=== PATIENT | male | born 1980 | race Caucasian/White ===

== ENCOUNTER 2019-10-05 10:44 | Emergency (ER) | payer OTHER ==
[~2019-10-05] VITALS: Ht 195.6 cm; Wt 122.7 kg
[2019-10-05 10:46] VITALS: BP 145/108
== END 2019-10-05 12:22 | disposition home or self-care (01) ==
LOC: ER 10:45
DX: M25.511 Pain in right shoulder (principal); M54.2 Cervicalgia; R10.30 Lower abdominal pain, unspecified; R10.2 Pelvic and perineal pain; G89.29 Other chronic pain; Z72.89 Other problems related to lifestyle
CPT/HCPCS: 73030; 99283

== ENCOUNTER 2022-03-18 14:46 | Emergency (ER) | payer BC ==
[~2022-03-18] VITALS: Ht 191.8 cm; Wt 136.4 kg
[2022-03-18 15:06] LABS: BASOPHILS % (AUTO) 0.4 % (0-1); EOSINOPHILS % (AUTO) 0.4 % (0-6); HEMATOCRIT 44.3 % (42.0-52.0); HEMOGLOBIN 14.7 g/dl (14.0-17.9); LYMPHOCYTES # (AUTO) 2.5 X10'3 (1.1-4.8); LYMPHOCYTES % (AUTO) 25.3 % (21-51); MEAN CORPUSCULAR HEMOGLOBIN 29.7 PG (27.0-31.0); MEAN CORPUSCULAR HGB CONC 33.2 g/dL (33.0-36.5); MEAN CORPUSCULAR VOLUME 89.6 FL (78-98); MEAN PLATELET VOLUME 6.6 FL (7.4-10.4); MONOCYTES # (AUTO) 0.8 X10'3 (0-0.9); NEUTROPHILS # (AUTO) 6.5 X10'3 (1.8-7.7); NEUTROPHILS % (AUTO) 65.9 % (42-75); PLATELET COUNT 254 X10'3 (140-440); RED BLOOD COUNT 4.94 X10'6 (4.70-6.10); RED CELL DISTRIBUTION WIDTH 14.4 % (11.5-14.5); WHITE BLOOD COUNT 9.8 X10'3 (4.5-11.0)
[2022-03-18 15:25] LABS: ALANINE AMINOTRANSFERASE 62 U/L (12-78); ALBUMIN 4.7 G/DL (3.4-5.0); ALBUMIN/GLOBULIN RATIO 1.5 (1.1-1.5); ALKALINE PHOSPHATASE 60 IU/L (46-116); ANION GAP 14 (8-16); ASPARTATE AMINO TRANSFERASE 38 U/L (10-37); BILIRUBIN,TOTAL 0.4 MG/DL (0.1-1.0); BLOOD UREA NITROGEN 17 MG/DL (7-18); BUN/CREATININE RATIO 17.3 (5.4-32.0); CALCIUM 9.4 MG/DL (8.5-10.1); CHLORIDE 101 MMOL/L (99-107); CREATININE 0.98 MG/DL (0.60-1.10); GLUCOSE 92 MG/DL (70-104); MAGNESIUM 1.9 MG/DL (1.5-2.4); POTASSIUM 3.9 MMOL/L (3.5-5.1); SODIUM 138 MMOL/L (135-145); TOTAL CARBON DIOXIDE 22.6 MMOL/L (24-32); TOTAL PROTEIN 7.8 G/DL (6.4-8.2); eGFR 84 ML/MIN
[2022-03-18] MEDS ORDERED: LORazepam 1 MG tablet PO ONE (16:20)
--- NOTE | 2022-03-18 16:41 | NUR ---
PATIENT PLANS TO HAVE HIS DRIVE HIM HOME UPON DISCHARGE. RADHA LU
[2022-03-18] MEDS ORDERED: ATEN-169 PO (17:46)
[2022-03-18 17:57] VITALS: BP 164/102
== END 2022-03-18 18:01 | disposition home or self-care (01) ==
LOC: ER 14:46
DX: I83.92 Asymptomatic varicose veins of left lower extremity (principal); Z20.822 Contact with and (suspected) exposure to COVID-19; M71.22 Synovial cyst of popliteal space [Baker], left knee; G89.29 Other chronic pain; M54.9 Dorsalgia, unspecified; F17.200 Nicotine dependence, unspecified, uncomplicated
CPT/HCPCS: 36415; 70450; 80053; 83735; 83880; 84484; 85025; 87502; 87503; 87635; 93005; 93971; 99285; C9803

== ENCOUNTER 2023-09-04 08:15 | Emergency (ER) | payer BC ==
[~2023-09-04] VITALS: Ht 190.5 cm; Wt 146.0 kg
[2023-09-04] MEDS: hydrALAZINE 20mg/ml inj. IV ONE (08:50)
[2023-09-04] MEDS ORDERED: atenolol 50mg tablet PO SCH (08:50)
[2023-09-04 09:08] LABS: BASOPHILS % (AUTO) 0.6 % (0-1); EOSINOPHILS # (AUTO) 0.2 X10'3 (0-0.9); EOSINOPHILS % (AUTO) 2.3 % (0-6); HEMATOCRIT 44.1 % (42.0-52.0); HEMOGLOBIN 14.7 g/dl (14.0-17.9); LYMPHOCYTES # (AUTO) 2.1 X10'3 (1.1-4.8); LYMPHOCYTES % (AUTO) 31.2 % (21-51); MEAN CORPUSCULAR HEMOGLOBIN 30.3 PG (27.0-31.0); MEAN CORPUSCULAR HGB CONC 33.3 g/dL (33.0-36.5); MEAN CORPUSCULAR VOLUME 90.9 FL (78-98); MONOCYTES # (AUTO) 0.6 X10'3 (0-0.9); MONOCYTES % (AUTO) 8.6 % (2-12); NEUTROPHILS # (AUTO) 3.8 X10'3 (1.8-7.7); NEUTROPHILS % (AUTO) 57.3 % (42-75); PLATELET COUNT 210 X10'3 (140-440); RED BLOOD COUNT 4.85 X10'6 (4.70-6.10); RED CELL DISTRIBUTION WIDTH 13.9 % (11.5-14.5); WHITE BLOOD COUNT 6.7 X10'3 (4.5-11.0)
[2023-09-04 09:34] LABS: ALANINE AMINOTRANSFERASE 98 U/L (12-78); ALBUMIN 3.9 G/DL (3.4-5.0); ALBUMIN/GLOBULIN RATIO 1.1 (1.1-1.5); ALKALINE PHOSPHATASE 60 IU/L (46-116); ANION GAP 13 (8-16); ASPARTATE AMINO TRANSFERASE 30 U/L (10-37); BILIRUBIN,TOTAL 0.3 MG/DL (0.1-1.0); BLOOD UREA NITROGEN 16 MG/DL (7-18); CHLORIDE 106 MMOL/L (99-107); GLUCOSE 126 MG/DL (70-104); POTASSIUM 3.7 MMOL/L (3.5-5.1); SODIUM 142 MMOL/L (135-145); TOTAL CARBON DIOXIDE 23.5 MMOL/L (24-32); TOTAL PROTEIN 7.5 G/DL (6.4-8.2); eCRCL 142 ML/MIN; eGFR > 90 ML/MIN
[2023-09-04] MEDS ORDERED: APIX5TAB3 PO (10:20)
[2023-09-04] MEDS ORDERED: ATEN50TA8 PO (10:21)
[2023-09-04] MEDS ORDERED: HYDR25TA5 PO (10:27)
[2023-09-04] MEDS ORDERED: iohexol 350MG/ML 100ml bottle IV ONE (10:40)
[2023-09-04] MEDS: apixaban 5mg tablet PO ONE (10:58)
[2023-09-04] MEDS: normal saline 1000ml 1,000 ML IVB ONE (10:59)
[2023-09-04 11:01] VITALS: BP 158/114; RESP 16; TEMP 96.7
[2023-09-04] MEDS: HYDROchlorothiazide 25mg tablet PO ONE (11:27)
[2023-09-04 11:31] VITALS: PULSE 87; O2SAT 97
== END 2023-09-04 11:56 | disposition home or self-care (01) ==
LOC: ER 08:16
DX: I82.462 Acute embolism and thrombosis of left calf muscular vein (principal); I16.0 Hypertensive urgency; R00.2 Palpitations; R07.89 Other chest pain; I10 Essential (primary) hypertension; F17.210 Nicotine dependence, cigarettes, uncomplicated; F12.90 Cannabis use, unspecified, uncomplicated; Z79.899 Other long term (current) drug therapy
CPT/HCPCS: 36415; 71045; 80053; 83605; 84484; 85025; 93005; 93971; 96360; 99285; J7030; Q9967

== ENCOUNTER 2024-04-07 12:57 | Emergency (ER) | payer SELFPAY ==
[~2024-04-07] VITALS: Ht 190.5 cm; Wt 128.4 kg
[~2024-04-07 12:57] MED LIST: APIX5TAB3 PO; HYDR25TA5 PO
[2024-04-07 13:05] VITALS: BP 125/86; PULSE 109; RESP 18; TEMP 97.5; O2SAT 100
[2024-04-07] MEDS ORDERED: AMOX-580 PO (13:34)
== END 2024-04-07 13:47 | disposition home or self-care (01) ==
LOC: ER 12:58
DX: K08.89 Other specified disorders of teeth and supporting structures (principal); I10 Essential (primary) hypertension; F12.90 Cannabis use, unspecified, uncomplicated
CPT/HCPCS: 99283

== ENCOUNTER 2024-08-29 14:00 | Emergency (ER) | payer MEDICAID ==
[~2024-08-29] VITALS: Ht 193 cm; Wt 133.0 kg
[2024-08-29 14:02] VITALS: BP 163/97; PULSE 89; RESP 16; TEMP 98.3; O2SAT 97
--- NOTE | 2024-08-29 14:21 | ELECTROCARDIOGRAPH REPORT ---
[facility] Test Date: 2024-08-29 Test Time: 14:10:09 Pat Name: JANELLE SPENCER Department: EMERGENCY ROOM [id number] Room: Gender: M [employer]: : [id number] Requested By: KOREY RICHARDS Order Number: [id number] Reading MD: Dr. Yann Márquez Measurements Intervals [place] Rate: 78 P: 52 [place]: 149 QRS: 63 QRSD: 91 T: 51 QT: 359 QTc: 409 Interpretive Statements Sinus rhythm Baseline wander in lead(s) V2 Electronically Signed On 09-06-2024 18:42:[address] Yann Márquez Please click the below link to view image of tracing.
[2024-08-29 14:38] LABS: BASOPHILS % (AUTO) 0.6 % (0-1); EOSINOPHILS # (AUTO) 0.1 X10'3 (0-0.9); EOSINOPHILS % (AUTO) 1.2 % (0-6); HEMATOCRIT 44.6 % (42.0-52.0); LYMPHOCYTES % (AUTO) 24.5 % (21-51); MEAN CORPUSCULAR HEMOGLOBIN 30.8 PG (27.0-31.0); MEAN CORPUSCULAR HGB CONC 33.5 g/dL (33.0-36.5); MEAN CORPUSCULAR VOLUME 91.8 FL (78-98); MEAN PLATELET VOLUME 6.9 FL (7.4-10.4); MONOCYTES # (AUTO) 0.5 X10'3 (0-0.9); MONOCYTES % (AUTO) 6.4 % (2-12); NEUTROPHILS # (AUTO) 5.4 X10'3 (1.8-7.7); NEUTROPHILS % (AUTO) 67.3 % (42-75); PLATELET COUNT 234 X10'3 (140-440); RED BLOOD COUNT 4.86 X10'6 (4.70-6.10); RED CELL DISTRIBUTION WIDTH 13.6 % (11.5-14.5); WHITE BLOOD COUNT 8.1 X10'3 (4.5-11.0)
[2024-08-29 14:56] LABS: ALBUMIN 4.1 G/DL (3.4-5.0); ANION GAP 10 (8-16); BLOOD UREA NITROGEN 21 MG/DL (7-18); BUN/CREATININE RATIO 21.9 (10.0-20.0); CALCIUM 8.6 MG/DL (8.5-10.1); CHLORIDE 108 MMOL/L (99-107); CREATININE 0.96 MG/DL (0.60-1.10); GLUCOSE 105 MG/DL (70-104); POTASSIUM 4.1 MMOL/L (3.5-5.1); PRO BRAIN NATRIURETIC PEPTIDE 50 PG/ML (0-125); SODIUM 142 MMOL/L (135-145); TOTAL CARBON DIOXIDE 23.6 MMOL/L (24-32); eCRCL 121 ML/MIN; eGFR 85 ML/MIN
--- NOTE | 2024-08-29 15:00 | RADIOLOGY REPORT ---
EXAM: DI CHEST,SINGLE VIEW HISTORY: CP COMPARISON: DI CHEST,SINGLE VIEW on DOS: 09/04/23 TECHNIQUE: PA upright view of the chest was performed. FINDINGS: No pneumothorax, consolidative infiltrates, or pulmonary edema. The heart is not enlarged. No fractur es are identified about the bony thorax. IMPRESSION: No acute intrathoracic process.
--- NOTE | 2024-08-29 16:24 | Physician Documentation ---
History of Present Illness ~ Chief Complaint: Chest Pain Stated Complaint: CP Time Seen by MD: 15:39 Primary Medical Doctor: NO PMD Source: patient, RN/MD HPI Patient is seen today with complaints of chest pain and headache in traumatic brain injury/concussive symptoms. 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 Patient denies any heavy alcohol use. Patient states he was admitted to the hospital a few days ago but left AMA due to it being noisy in not being able to sleep. Patient denies any vomiting or diarrhea or fevers or chills or severe headache. He has no other concern or complaint at this time. Medication Reconciliation Allergies: Coded Allergies: amoxicillin (Unverified Allergy, Unknown, 08/27/24) Discontinued Medications Apixaban (Eliquis), 5 MG PO BID Discontinued Reason: patient no longer taking Hydrochlorothiazide (Hydrochlorothiazide), 1 TAB PO DAILY Discontinued Reason: patient no longer taking Past Medical History Past Medical History: Hypertension, Chronic Back Pain Past Surgical History: noncontributory Patient History: Patient reports no known family medical history. Alcohol Use: Occasionally Drug Use: marijuana Lives In: Home Occupation: employed Review of Systems Constitutional: Denies: chills, fever, weakness Eyes: Denies: pain, blurred vision ENT: Denies: ear pain, nose pain, throat pain, mouth pain Respiratory: Denies: cough, shortness of breath Cardiovascular: Denies: chest pain, palpitations Gastrointestinal: Denies: abdominal pain, nausea, vomiting Genitourinary: Denies: burning, dysuria Male Genitalia: Denies: penile discharge, testicular pain Neurological: Denies: headache, dizziness Musculoskeletal: Denies: pain, swelling Integumentary: Denies: rash, lesions Allergic/Immunologic: Denies: hives, itching Hematologic/Lymphatic: Denies: no symptoms reported Psychiatric: Denies: depression, anxiety Physical Exam Vital Signs: Temperature: 98.3, Source: Temporal, Heart Rate: 89, Respiratory Rate: 16, BP: 163/97, Pulse Oximetry: 97, Weight: 133.000 Oxygen Flow Rate: 0 Physical Exam General: Awake and Alert, no acute distress. HEENT: PERRLA, EOM intact bilaterally. Conjunctiva pink, Sclera clear, Mucus Membranes moist. Neck: Supple without masses and tenderness. Resp: Unlabored. Lungs clear to auscultation bilaterally. Heart: Regular Rate and rhythm, normal S1 and S2 without murmur, rub or gallop. Abdomen: Soft and non tender no organomegaly Extremities: No cyanosis,clubbing or edema. Skin: Warm and Dry. Progress Results/Orders Results/Orders Vital Signs 08/29/24 14:02 Temp 98.3 Pulse 89 Resp 16 B/P (MAP) 163/97 Pulse Ox 97 O2 Flow Rate 0 Laboratory Tests Test 08/29/24 14:26 White Blood Count 8.1 Red Blood Count 4.86 Hemoglobin 15.0 Hematocrit 44.6 Mean Corpuscular Volume 91.8 Mean Corpuscular Hemoglobin 30.8 Mean Corpuscular Hemoglobin Concent 33.5 Red Cell Distribution Width 13.6 Platelet Count 234 Mean Platelet Volume 6.9 L Neutrophils (%) (Auto) 67.3 Lymphocytes (%) (Auto) 24.5 Monocytes (%) (Auto) 6.4 Eosinophils (%) (Auto) 1.2 Basophils (%) (Auto) 0.6 Neutrophils # (Auto) 5.4 Lymphocytes # (Auto) 2.0 Monocytes # (Auto) 0.5 Eosinophils # (Auto) 0.1 Basophils # (Auto) 0.0 CBC Comment Sodium Level 142 Potassium Level 4.1 Chloride Level 108 H Carbon Dioxide Level 23.6 L Anion Gap 10 Blood Urea Nitrogen 21 H Creatinine 0.96 Estimated GFR/1.73 m2 85 BUN/Creatinine Ratio 21.9 H Glucose Level 105 H Calcium Level 8.6 Troponin I High Sensitivity 10 Pro-B-Type Natriuretic Peptide 50 Albumin 4.1 Chemistry Comments EKG/XRAY/CT/US/VASC/MRI EKG : Additional Comment EKG interpreted by myself today shows normal sinus rhythm, regular rate at 78 beats per minute, no axis deviation, no ischemia or ST segment elevation. Chest X-Ray : Additional Comments Chest x-ray interpreted by myself today shows no large infiltrate, no large effusion, normal mediastinum. DIAGNOSTIC RADIOLOGY Patient: JANELLE SPENCER Medical Record: [id number] ELIZABETH FOR[place] THOMAS : 1980, Age: 44 Sex: Male Location: ER Patient Status: [facility] ER Service Date/Time: 08/29/24/ 1419 Ordering Physician: KOREY RICHARDS MD Exam: CHEST,SINGLE VIEW EXAM: DI CHEST,SINGLE VIEW HISTORY: CP COMPARISON: DI CHEST,SINGLE VIEW on DOS: 09/04/23 TECHNIQUE: PA upright view of the chest was performed. FINDINGS: No pneumothorax, consolidative infiltrates, or pulmonary edema. The heart is not enlarged. No fractures are identified about the bony thorax. IMPRESSION: No acute intrathoracic process. Electronically Signed by:GHULAM GARCIA MD Date & Time: 08/29/24 1457 Dictated by: GHULAM GARCIA MD Dictation date and time: 08/29/24 1435 Primary Care Provider: NO PRIMARY CARE PROVIDER cc: KOREY RICHARDS MD ~ Heart Score: Heart Score Response (Comments) Value History Slightly Suspicious 0 EKG Normal 0 Age <45 0 Risk Factors No known risk factors 0 Troponin Normal limit 0 Total 0 Medical Decision Making Findings Patient is seen today with complaints of chest pain and headache in traumatic brain injury/concussive symptoms. 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 Patient denies any heavy alcohol use. Patient states he was admitted to the hospital a few days ago but left AMA due to it being noisy in not being able to sleep. Patient denies any vomiting or diarrhea or fevers or chills or severe headache. He has no other concern or complaint at this time. Patient states he did have head CT at that time recently that showed no acute findings. Patient's history and physical exam findings and laboratory work are unremarkable for any acute coronary issue. Patient likely has concussion and I strongly recommended outpatient follow up with Neurology. Patient voiced understanding. Patient declined admission at this time. I advised patient needs neurologic rest and to take 3-7 days off work at least or until symptoms resolve. Patient will follow up with primary care for referral to Neurology as soon as possible. Return to ED with any worsening, concerning or changing symptoms. Departure Disposition: 01 HOME / SELF CARE / HOMELESS Impression: Primary Impression: Chest pain Qualified Codes: R07.9 - Chest pain, unspecified Additional Impression: Concussion Qualified Codes: S06.0X0A - Concussion without loss of consciousness, initial encounter Condition: Stable Discharge Instructions: Concussion, Adult, [id number] Additional Instructions: Patient's history and physical exam findings and laboratory work are unremarkable for any acute coronary issue. Patient likely has concussion and I strongly recommended outpatient follow up with Neurology. Patient voiced understanding. Patient declined admission at this time. I advised patient needs neurologic rest and to take 3-7 days off work at least or until symptoms resolve. Patient will follow up with primary care for referral to Neurology as soon as possible. Return to ED with any worsening, concerning or changing symptoms. Referrals: NO PRIMARY CARE PROVIDER (PCP) Additional Comment Additional Comment Patient declined admission at this time. Signature Scribe Signature: No scribe Attestation: No scribe MATEO CASTELLON Aug 29, 2024 16:24
== END 2024-08-29 16:23 | disposition home or self-care (01) ==
LOC: ER 14:00
DX: R07.9 Chest pain, unspecified (principal); S06.0X0A Concussion without loss of consciousness, initial encounter; R11.0 Nausea; I10 Essential (primary) hypertension; F12.90 Cannabis use, unspecified, uncomplicated; R06.02 Shortness of breath; Z88.0 Allergy status to penicillin; X58.XXXA Exposure to other specified factors, initial encounter; Y93.89 Activity, other specified; Y92.89 Other specified places as the place of occurrence of the external cause; Y99.8 Other external cause status
CPT/HCPCS: 36415; 71045; 80048; 83880; 84484; 85025; 93005; 99285